=== PATIENT | female | born 1940 | race Caucasian/White ===

== ENCOUNTER 2016-06-17 15:10 | Day surgery (SDC) | payer MEDICARE ==
[~2016-06-17 15:10] MED LIST: DIPRIVAN 200 MG/20 ML IV ONE; Kenalog-40 IM ONE; Lactated Ringers 1,000 ML IV ONE; Lactated Ringers 1,000 ML IV SCH; Sensorcaine 0.25% 10 ML IJ ONE
[2016-06-17 16:47] VITALS: BP 155/86; PULSE 83; O2SAT 95
--- NOTE | 2016-06-17 19:25 | XRAY ---
Indication: Bilateral L2-L5 medial branch block. Intraoperative fluoroscopy was provided for 12 seconds. Single digital spot image submitted for interpretation demonstrates 8 posterior spinal needles with the tips projecting over the expected course of the left and right L2-L5 nerve roots. Correlate with intraoperative findings/report. Incidental posterior L4-L5 fusion hardware.
--- NOTE | 2016-06-18 15:12 | XRAY ---
12 seconds fluoroscopy time in surgery for bilateral MBB L2-5.
== END 2016-06-17 19:20 | disposition home or self-care (01) ==
LOC: SDC-PAIN 15:10
PROVIDERS: ATTEND Pain Medicine Interventional Pain Medicine
DX: M47.816 Spondylosis without myelopathy or radiculopathy, lumbar region (principal); M79.7 Fibromyalgia; M54.5 Low back pain
CPT/HCPCS: 64493; 64494; 64495; 72020; 77003; J2704; J3301

== ENCOUNTER 2016-09-23 08:44 | Day surgery (SDC) | payer MEDICARE ==
[2012-12-15 12:39] VITALS: BP 123/56
[~2016-09-23 08:44] MED LIST changes: -DIPRIVAN 200 MG/20 ML IV ONE; -Lactated Ringers 1,000 ML IV SCH; +Levofloxacin 500MG/100ML D5W 500 MG/100 ML BAG IV ONE; +SUBLIMAZE 100 MCG/2 ML IV ONE; +Xylocaine 1% Vial 30 ML PF IJ ONE
[2016-09-23] MEDS ORDERED: DIPRIVAN 200 MG/20 ML IV ONE (11:00)
--- NOTE | 2016-09-23 17:19 | XRAY ---
38 seconds fluoroscopy time in surgery for left L2-L5 RFA.
--- NOTE | 2016-09-25 02:29 | XRAY ---
Indication: Left L2-L5 RFA. Intraoperative fluoroscopy was provided for 38 seconds. 6 digital C-arm spot images are submitted for interpretation. Posterior fusion device is seen at L4-L5. Lower lumbar rotary levoscoliosis is seen centered at L4 representing no change. Posterior spinal needles with the tips projected over the expected course of the left L2-L5 nerve roots are seen. Correlate with intraoperative findings/report.
== END 2016-09-23 12:15 | disposition home or self-care (01) ==
LOC: SDC-PAIN 08:44
PROVIDERS: ATTEND Pain Medicine Interventional Pain Medicine
DX: M47.816 Spondylosis without myelopathy or radiculopathy, lumbar region (principal); M79.7 Fibromyalgia; M54.5 Low back pain
CPT/HCPCS: 01936; 64635; 64636; 72100; 77003; 99100; J1956; J2001; J2704; J3010; J3301